=== PATIENT | female | born 1965 ===

== ENCOUNTER 2018-05-03 16:39 | Emergency (ER) | payer OTHER ==
[~2018-05-03] VITALS: Ht 162.6 cm; Wt 76.2 kg
[~2018-05-03 16:39] MED LIST: DOLOGEN CAPLET1 EACH PO; MEDROL4 MG PO; MICARDIS20 MG; PARA LA PRESION
== END 2018-05-03 20:37 | disposition home or self-care (01) ==
LOC: ER 16:39
DX: M94.0 Chondrocostal junction syndrome [Tietze] (principal); K29.60 Other gastritis without bleeding

== ENCOUNTER 2020-12-11 14:16 | Outpatient (CLI) | payer OTHER | END 2020-12-11 14:44 | disposition home or self-care (01) | LOC: MAMO-SONO 14:16 | PROVIDERS: ATTEND Specialist | DX: N63.0 Unspecified lump in unspecified breast (principal); Z12.31 Encounter for screening mammogram for malignant neoplasm of breast ==

== ENCOUNTER 2021-08-17 12:07 | Outpatient (CLI) | payer OTHER | END 2021-08-17 12:22 | disposition home or self-care (01) | LOC: RAD 12:07 | PROVIDERS: ATTEND General Practice | DX: R06.02 Shortness of breath (principal); Z12.11 Encounter for screening for malignant neoplasm of colon; Z13.228 Encounter for screening for other metabolic disorders; E11.8 Type 2 diabetes mellitus with unspecified complications; K76.0 Fatty (change of) liver, not elsewhere classified ==

== ENCOUNTER 2021-08-26 14:00 | Outpatient (CLI) | payer OTHER | END 2021-08-26 14:11 | disposition home or self-care (01) | LOC: SONOGRAMA 14:00 | PROVIDERS: ATTEND General Practice | DX: M79.672 Pain in left foot (principal) ==

== ENCOUNTER 2023-03-22 11:20 | Outpatient (CLI) | payer OTHER | END 2023-03-22 11:28 | disposition home or self-care (01) | LOC: MRI 11:20 | PROVIDERS: ATTEND General Practice | DX: M54.42 Lumbago with sciatica, left side (principal); E11.8 Type 2 diabetes mellitus with unspecified complications | CPT/HCPCS: 72148 ==

== ENCOUNTER 2023-04-22 11:00 | Outpatient (CLI) | payer OTHER | END 2023-04-22 11:20 | disposition home or self-care (01) | LOC: RAD 11:00 | PROVIDERS: ATTEND General Practice | DX: M51.9 Unspecified thoracic, thoracolumbar and lumbosacral intervertebral disc disorder (principal); M79.642 Pain in left hand; R22.32 Localized swelling, mass and lump, left upper limb ==

== ENCOUNTER 2023-11-03 11:23 | Outpatient (CLI) | payer OTHER | END 2023-11-03 11:29 | disposition home or self-care (01) | LOC: RAD 11:23 | PROVIDERS: ATTEND General Practice | DX: R05.9 Cough, unspecified (principal); I10 Essential (primary) hypertension ==

== ENCOUNTER 2024-07-06 13:38 | Outpatient (CLI) | payer OTHER | END 2024-07-06 13:45 | disposition home or self-care (01) | LOC: MRI 13:38 | PROVIDERS: ATTEND Specialist | DX: M25.562 Pain in left knee (principal) | CPT/HCPCS: 73721 ==

== ENCOUNTER 2024-07-30 14:21 | Outpatient (CLI) | payer OTHER | END 2024-07-30 14:31 | disposition home or self-care (01) | LOC: MRI 14:21 | PROVIDERS: ATTEND General Practice | DX: M54.41 Lumbago with sciatica, right side (principal); M54.50 Low back pain, unspecified; R20.2 Paresthesia of skin; E11.9 Type 2 diabetes mellitus without complications | CPT/HCPCS: 72148 ==

== ENCOUNTER 2024-12-13 07:57 | Outpatient (CLI) | payer OTHER | END 2024-12-13 08:06 | disposition home or self-care (01) | LOC: RAD 07:57 | PROVIDERS: ATTEND General Practice | DX: E11.8 Type 2 diabetes mellitus with unspecified complications (principal); I10 Essential (primary) hypertension; R60.0 Localized edema; M79.641 Pain in right hand; R60.9 Edema, unspecified; M79.642 Pain in left hand; M25.542 Pain in joints of left hand; M25.531 Pain in right wrist; M25.532 Pain in left wrist | CPT/HCPCS: 73218 ==

== ENCOUNTER 2025-04-12 07:28 | Outpatient (CLI) | payer OTHER | END 2025-04-12 07:39 | disposition home or self-care (01) | LOC: SONOGRAMA 07:28 | PROVIDERS: ATTEND General Practice | DX: R10.9 Unspecified abdominal pain (principal); R30.0 Dysuria; R31.9 Hematuria, unspecified; E11.8 Type 2 diabetes mellitus with unspecified complications ==